=== PATIENT | male | born 1950 | race Caucasian/White ===

== ENCOUNTER 2017-03-16 21:37 | Emergency (ER) | payer MEDICARE, MEDICAID ==
[~2017-03-16] VITALS: Ht 172.7 cm; Wt 96.0 kg
[~2017-03-16 21:37] MED LIST: HYDR25TA PO; LEVE250T55 PO
[2017-03-16 22:02] LABS: GLUCOSE,POINT OF CARE 108 MG/DL (70-110)
[2017-03-17] MEDS ORDERED: KETOROLAC TROMETHAMINE 30 MG/ML VIAL IM ONE (00:15)
[2017-03-17 00:50] VITALS: BP 119/69
== END 2017-03-17 00:57 | disposition home or self-care (01) ==
LOC: EMS 21:39
DX: S09.90XA Unspecified injury of head, initial encounter (principal); E11.9 Type 2 diabetes mellitus without complications; I10 Essential (primary) hypertension; W19.XXXA Unspecified fall, initial encounter; Y93.89 Activity, other specified; Y92.89 Other specified places as the place of occurrence of the external cause; Y99.8 Other external cause status
CPT/HCPCS: 70450; 72125; 82962; 96372; 99284; J1885

== ENCOUNTER 2017-06-15 23:32 | Emergency (ER) | payer MEDICARE, MEDICAID ==
[~2017-06-15] VITALS: Ht 170.2 cm; Wt 81.5 kg
[2017-06-16] MEDS ORDERED: KETOROLAC TROMETHAMINE 30 MG/ML VIAL IM ONE (01:45)
[2017-06-16 03:07] VITALS: BP 113/72
[2017-10-09] MEDS ORDERED: DOCU250C91 PO (16:45)
[2017-10-09] MEDS ORDERED: LEVE500T53 PO (16:45)
[2017-10-09] MEDS ORDERED: OXYC10IR PO (16:45)
[2017-10-09] MEDS ORDERED: IBUP100O27 PO (16:45)
[2017-10-09] MEDS ORDERED: LIDO700A15 TD (16:45)
[2017-10-09] MEDS ORDERED: SENN8.6T90 PO (16:45)
[2017-10-09] MEDS ORDERED: GABA-529 PO (16:45)
[2017-10-09] MEDS ORDERED: TAMS0.4C32 PO (16:45)
[2017-10-10] MEDS ORDERED: GABA-531 PO (15:02)
[2017-10-10] MEDS ORDERED: IBUP-2070 PO (15:02)
[2017-10-11] MEDS ORDERED: DUTA.5 PO (18:16)
[2017-10-11] MEDS ORDERED: MVITFE PO (18:19)
[2017-10-11] MEDS ORDERED: PANT40TA25 PO (18:20)
[2017-10-11] MEDS ORDERED: CYCL10 PO (18:23)
[2017-10-11] MEDS ORDERED: LACT30L PO (18:25)
== END 2017-06-16 03:33 | disposition home or self-care (01) ==
LOC: EMS 23:33
DX: M54.5 Low back pain (principal); M62.830 Muscle spasm of back; G89.29 Other chronic pain; E11.9 Type 2 diabetes mellitus without complications; I10 Essential (primary) hypertension; Z86.73 Personal history of transient ischemic attack (TIA), and cerebral infarction without residual deficits
CPT/HCPCS: 82962; 96372; 99283; J1885

== ENCOUNTER 2017-06-16 14:46 | Emergency (ER) | payer MEDICARE, MEDICAID ==
[~2017-06-16] VITALS: Ht 172.7 cm; Wt 95.5 kg
[2017-06-16 15:12] LABS: GLUCOSE,POINT OF CARE 112 MG/DL (70-110)
[2017-06-16] MEDS ORDERED: KETOROLAC TROMETHAMINE 60 MG/2 ML VIAL IM ONE (16:30)
[2017-06-16 16:56] LABS: BASOPHILS % (AUTO) 0.3 % (0.0-2.0); EOSINOPHILS % (AUTO) 0.9 % (1.0-6.0); HEMATOCRIT 38.1 % (41-53); HEMOGLOBIN 13.1 g/dL (13.5-17.5); LYMPHOCYTES # (AUTO) 1.6 K/uL (1.0-4.8); MEAN CORPUSCULAR HEMOGLOBIN 31.7 pg (26.0-34.0); MEAN CORPUSCULAR HGB CONC 34.3 G/dL (31.0-37.0); MEAN CORPUSCULAR VOLUME 92 fL (80-100); MONOCYTES # (AUTO) 0.4 K/uL (0.1-1.0); NEUTROPHILS # (AUTO) 4.8 K/uL (1.8-7.7); NEUTROPHILS % (AUTO) 69.8 % (40.0-70.0); PLATELET COUNT (AUTO) 132 K/uL (150-450); RED BLOOD CELL COUNT(AUTO) 4.13 MIL/uL (4.50-5.90); RED CELL DISTRIBUTION WIDTH 15.1 % (11.5-14.5); WHITE BLOOD COUNT (AUTO) 6.9 K/uL (4.5-11.0)
[2017-06-16 17:08] LABS: ANION GAP 9 mmol/L (8-16); CALCIUM, TOTAL 8.1 mg/dL (8.8-10.5); CARBON DIOXIDE 26 mmol/L (22-29); CHLORIDE 99 mmol/L (98-107); CREATININE 0.86 mg/dL (0.60-1.30); GLOMERULAR FILTR. RATE CALC > 60 mL/min (>60); POTASSIUM 4.1 mmol/L (3.5-5.1); SODIUM SERUM 134 mmol/L (136-145); UREA NITROGEN, BLOOD 5 mg/dL (7-18)
[2017-06-16 17:14] LABS: ALANINE AMINOTRANSFERASE 31 U/L (12-78); ALBUMIN 3.1 g/dL (3.4-5.0); ASPARTATE AMINOTRANSFERASE 33 U/L (15-37); TOTAL PROTEIN, SERUM 7.3 g/dL (6.4-8.2)
[2017-06-16 17:50] VITALS: BP 133/86
[2017-10-09] MEDS ORDERED: GABA-529 PO (16:45)
[2017-10-09] MEDS ORDERED: SENN8.6T90 PO (16:45)
[2017-10-09] MEDS ORDERED: LEVE500T53 PO (16:45)
[2017-10-09] MEDS ORDERED: DOCU250C91 PO (16:45)
[2017-10-09] MEDS ORDERED: IBUP100O27 PO (16:45)
[2017-10-09] MEDS ORDERED: LIDO700A15 TD (16:45)
[2017-10-09] MEDS ORDERED: OXYC10IR PO (16:45)
[2017-10-09] MEDS ORDERED: TAMS0.4C32 PO (16:45)
[2017-10-10] MEDS ORDERED: GABA-531 PO (15:02)
[2017-10-10] MEDS ORDERED: IBUP-2070 PO (15:02)
[2017-10-11] MEDS ORDERED: DUTA.5 PO (18:16)
[2017-10-11] MEDS ORDERED: MVITFE PO (18:19)
[2017-10-11] MEDS ORDERED: PANT40TA25 PO (18:20)
[2017-10-11] MEDS ORDERED: CYCL10 PO (18:23)
[2017-10-11] MEDS ORDERED: LACT30L PO (18:25)
== END 2017-06-16 18:20 | disposition home or self-care (01) ==
LOC: EMS 14:48
DX: M54.5 Low back pain (principal); G89.29 Other chronic pain; F10.10 Alcohol abuse, uncomplicated; E11.9 Type 2 diabetes mellitus without complications; I10 Essential (primary) hypertension; Z86.73 Personal history of transient ischemic attack (TIA), and cerebral infarction without residual deficits
CPT/HCPCS: 36415; 72100; 80053; 80307; 82962; 85025; 96372; 99285; G0480; J1885

== ENCOUNTER 2017-08-27 15:01 | Inpatient (IN) | payer MEDICARE, MEDICAID ==
[~2017-08-27] VITALS: Ht 172.7 cm; Wt 88.5 kg
[2017-08-27 15:22] LABS: GLUCOSE,POINT OF CARE 94 MG/DL (70-110)
[2017-08-27] MEDS ORDERED: OXYC10 PO (15:42)
[2017-08-27] MEDS: IBUPROFEN 600 MG TABLET PO ONE ×3 (15:59→16:58)
[2017-08-27 16:16] LABS: EOSINOPHILS % (AUTO) 1.1 % (1.0-6.0); HEMATOCRIT 31.5 % (41-53); LYMPHOCYTES % (AUTO) 36.5 % (22.0-44.0); MEAN CORPUSCULAR HEMOGLOBIN 22.6 pg (26.0-34.0); MEAN CORPUSCULAR HGB CONC 31.7 G/dL (31.0-37.0); MEAN CORPUSCULAR VOLUME 71 fL (80-100); MONOCYTES # (AUTO) 0.4 K/uL (0.1-1.0); MONOCYTES % (AUTO) 13.9 % (2.0-9.0); NEUTROPHILS # (AUTO) 1.4 K/uL (1.8-7.7); NEUTROPHILS % (AUTO) 48.5 % (40.0-70.0); PLATELET COUNT (AUTO) 172 K/uL (150-450); RED BLOOD CELL COUNT(AUTO) 4.42 MIL/uL (4.50-5.90); RED CELL DISTRIBUTION WIDTH 24.4 % (11.5-14.5); WHITE BLOOD COUNT (AUTO) 2.8 K/uL (4.5-11.0)
[2017-08-27 16:27] LABS: ANION GAP 9 mmol/L (8-16); CALCIUM, TOTAL 8.4 mg/dL (8.8-10.5); CARBON DIOXIDE 28 mmol/L (22-29); CHLORIDE 108 mmol/L (98-107); CREATININE 0.73 mg/dL (0.60-1.30); GLOMERULAR FILTR. RATE CALC > 60 mL/min (>60); SODIUM SERUM 145 mmol/L (136-145); UREA NITROGEN, BLOOD 7 mg/dL (7-18)
[2017-08-27 16:33] LABS: ALANINE AMINOTRANSFERASE 24 U/L (12-78); ALBUMIN 3.7 g/dL (3.4-5.0); ASPARTATE AMINOTRANSFERASE 27 U/L (15-37); BILIRUBIN,TOTAL 0.8 mg/dL (0.1-1.0); TOTAL PROTEIN, SERUM 8.1 g/dL (6.4-8.2)
[2017-08-27 17:27] LABS: RBC MORPHOLOGY COMMENT ABNORMAL RBC MORPH
[2017-08-27] MEDS ORDERED: LORazepam 2 MG/ML VIAL IM ONE (19:15)
[2017-08-27] MEDS ORDERED: HALOPERIDOL LACTATE 5 MG/ML VIAL IM ONE (19:15)
[2017-08-27] MEDS ORDERED: DiphenhydrAMINE HCL 50 MG/ML VIAL IM ONE (19:15)
[2017-08-27] MEDS ORDERED: HALOPERIDOL 5 MG TABLET PO PRN (22:15)
[2017-08-28] VITALS (9 sets, daily range): BP systolic 107–143; BP diastolic 60–81
[2017-08-28] MEDS ORDERED: PNEUMOCOCCAL VACCINE POLYVALENT 0.5 ML VIAL [PPSV23] IM ONE (05:00)
[2017-08-28] MEDS ORDERED: INFLUENZA VIRUS VACCINE QVS 2017-18 (3YR+)/PF 60 MCG/0.5 ML SYRINGE IM ONE (06:45)
[2017-08-28] MEDS: IBUPROFEN 400 MG TABLET PO PRN ×2 (08:42→16:39)
[2017-08-28] MEDS: HYDROCHLOROTHIAZIDE 25 MG TABLET PO SCH (08:42)
[2017-08-28 09:24] LABS: CHOL/HDL RATIO 2.1 (4.2-7.3)
[2017-08-28] MEDS: ACETAMINOPHEN 325 MG TABLET PO PRN (12:07)
[2017-08-28] MEDS: LevETIRAcetam 250 MG TABLET PO SCH (15:38)
[2017-08-28] MEDS: OLANZapine 10 MG TABLET PO SCH (20:36)
[2017-08-28] MEDS: ZOLPIDEM TARTRATE 10 MG TABLET PO PRN (21:10)
[2017-08-29] VITALS (11 sets, daily range): BP systolic 122–149; BP diastolic 79–89
[2017-08-29] MEDS: IBUPROFEN 400 MG TABLET PO PRN ×2 (00:06→11:39)
[2017-08-29] MEDS ORDERED: ZOLP10TA2 PO (02:00)
[2017-08-29] MEDS ORDERED: LACTULOSE 20 GM/30 ML SOLUTION UDCUP PO SCH (09:00)
[2017-08-29] MEDS: HYDROCHLOROTHIAZIDE 25 MG TABLET PO SCH (09:13)
[2017-08-29] MEDS: LevETIRAcetam 250 MG TABLET PO SCH (09:13)
[2017-08-29] MEDS: LACTULOSE 20 GM/30 ML SOLUTION UDCUP PO SCH ×2 (13:03→16:16)
[2017-08-29] MEDS: OLANZapine 10 MG TABLET PO SCH (20:10)
[2017-08-29] MEDS: ZOLPIDEM TARTRATE 10 MG TABLET PO PRN (21:10)
[2017-08-30] VITALS (7 sets, daily range): BP systolic 132–138; BP diastolic 80–89
[2017-08-30] MEDS: IBUPROFEN 400 MG TABLET PO PRN ×3 (00:02→18:42)
[2017-08-30] MEDS: LACTULOSE 20 GM/30 ML SOLUTION UDCUP PO SCH ×3 (10:41→16:39)
[2017-08-30] MEDS: LevETIRAcetam 250 MG TABLET PO SCH (10:42)
[2017-08-30] MEDS: HYDROCHLOROTHIAZIDE 25 MG TABLET PO SCH (10:42)
[2017-08-30] MEDS: OLANZapine 10 MG TABLET PO SCH (20:45)
[2017-08-30] MEDS: ZOLPIDEM TARTRATE 10 MG TABLET PO PRN (21:57)
[2017-08-31 01:00] VITALS: BP 149/87
[2017-08-31 01:01] VITALS: BP 149/87
[2017-08-31] MEDS: IBUPROFEN 400 MG TABLET PO PRN ×2 (01:03→16:17)
[2017-08-31 08:30] LABS: EOSINOPHILS % (AUTO) 1.4 % (1.0-6.0); HEMATOCRIT 27.2 % (41-53); HEMOGLOBIN 8.5 g/dL (13.5-17.5); LYMPHOCYTES # (AUTO) 0.8 K/uL (1.0-4.8); LYMPHOCYTES % (AUTO) 19.4 % (22.0-44.0); MEAN CORPUSCULAR HEMOGLOBIN 22.5 pg (26.0-34.0); MEAN CORPUSCULAR HGB CONC 31.4 G/dL (31.0-37.0); MEAN CORPUSCULAR VOLUME 72 fL (80-100); MONOCYTES # (AUTO) 0.5 K/uL (0.1-1.0); MONOCYTES % (AUTO) 12.5 % (2.0-9.0); NEUTROPHILS # (AUTO) 2.6 K/uL (1.8-7.7); NEUTROPHILS % (AUTO) 66.7 % (40.0-70.0); PLATELET COUNT (AUTO) 128 K/uL (150-450); RED CELL DISTRIBUTION WIDTH 24.9 % (11.5-14.5)
[2017-08-31 08:42] VITALS: BP 139/80
[2017-08-31 08:45] VITALS: BP 139/80
[2017-08-31] MEDS: HYDROCHLOROTHIAZIDE 25 MG TABLET PO SCH (08:57)
[2017-08-31] MEDS: LevETIRAcetam 250 MG TABLET PO SCH (08:57)
[2017-08-31] MEDS: LACTULOSE 20 GM/30 ML SOLUTION UDCUP PO SCH ×3 (08:59→16:14)
[2017-08-31 09:42] LABS: RBC MORPHOLOGY COMMENT ABNORMAL RBC MORPH
[2017-08-31 16:08] VITALS: BP 133/81
[2017-08-31 16:17] VITALS: BP 131/79
[2017-08-31] MEDS: ZOLPIDEM TARTRATE 10 MG TABLET PO PRN (20:28)
[2017-08-31] MEDS: OLANZapine 10 MG TABLET PO SCH (20:49)
[2017-09-01] VITALS (12 sets, daily range): BP systolic 123–164; BP diastolic 82–98
[2017-09-01] MEDS: LORazepam 2 MG TABLET PO PRN (00:03)
[2017-09-01] MEDS: IBUPROFEN 400 MG TABLET PO PRN ×3 (03:34→22:55)
[2017-09-01] MEDS: HYDROCHLOROTHIAZIDE 25 MG TABLET PO SCH (08:13)
[2017-09-01] MEDS: LACTULOSE 20 GM/30 ML SOLUTION UDCUP PO SCH ×3 (08:13→16:37)
[2017-09-01] MEDS: LevETIRAcetam 250 MG TABLET PO SCH (08:13)
[2017-09-01] MEDS: OLANZapine 10 MG TABLET PO SCH (20:40)
[2017-09-02 06:54] VITALS: BP 138/85
[2017-09-02 08:13] VITALS: BP_SYST 12; BP_SYST 123; BP_DIAS 71
[2017-09-02 08:51] LABS: BASOPHILS % (AUTO) 0.2 % (0.0-2.0); EOSINOPHILS % (AUTO) 3.1 % (1.0-6.0); HEMATOCRIT 26.1 % (41-53); HEMOGLOBIN 8.2 g/dL (13.5-17.5); LYMPHOCYTES # (AUTO) 0.6 K/uL (1.0-4.8); LYMPHOCYTES % (AUTO) 21.9 % (22.0-44.0); MEAN CORPUSCULAR HEMOGLOBIN 22.4 pg (26.0-34.0); MEAN CORPUSCULAR HGB CONC 31.4 G/dL (31.0-37.0); MEAN CORPUSCULAR VOLUME 71 fL (80-100); MONOCYTES # (AUTO) 0.4 K/uL (0.1-1.0); MONOCYTES % (AUTO) 14.2 % (2.0-9.0); NEUTROPHILS # (AUTO) 1.6 K/uL (1.8-7.7); NEUTROPHILS % (AUTO) 60.6 % (40.0-70.0); PLATELET COUNT (AUTO) 136 K/uL (150-450); RED BLOOD CELL COUNT(AUTO) 3.66 MIL/uL (4.50-5.90); RED CELL DISTRIBUTION WIDTH 25.2 % (11.5-14.5)
[2017-09-02 09:04] LABS: ANION GAP 9 mmol/L (8-16); CARBON DIOXIDE 26 mmol/L (22-29); CHLORIDE 106 mmol/L (98-107); CREATININE 0.83 mg/dL (0.60-1.30); GLOMERULAR FILTR. RATE CALC > 60 mL/min (>60); POTASSIUM 3.5 mmol/L (3.5-5.1); SODIUM SERUM 141 mmol/L (136-145); UREA NITROGEN, BLOOD 15 mg/dL (7-18)
[2017-09-02 09:25] LABS: WHITE BLOOD COUNT (AUTO) 2.9 K/uL (4.5-11.0)
[2017-09-02] MEDS: LevETIRAcetam 250 MG TABLET PO SCH (09:46)
[2017-09-02] MEDS: HYDROCHLOROTHIAZIDE 25 MG TABLET PO SCH (09:46)
[2017-09-02] MEDS: LACTULOSE 20 GM/30 ML SOLUTION UDCUP PO SCH ×3 (09:47→16:37)
[2017-09-02 10:43] VITALS: BP 128/72
[2017-09-02] MEDS: IBUPROFEN 400 MG TABLET PO PRN ×2 (10:43→21:48)
[2017-09-02 16:12] VITALS: BP 138/78
[2017-09-02] MEDS: RIFAXIMIN 550 MG TABLET PO SCH (16:36)
[2017-09-02] MEDS ORDERED: RIFAXIMIN 200 MG TABLET PO SCH (17:00)
[2017-09-02] MEDS: OLANZapine 10 MG TABLET PO SCH (20:40)
[2017-09-02 21:48] VITALS: BP 111/82
[2017-09-03 06:30] VITALS: BP 133/78
[2017-09-03] MEDS: FERROUS SULFATE 325 MG EC TABLET PO SCH ×4 (06:41→20:07)
[2017-09-03 08:00] VITALS: BP 138/89
[2017-09-03] MEDS: HYDROCHLOROTHIAZIDE 25 MG TABLET PO SCH (08:23)
[2017-09-03] MEDS: RIFAXIMIN 550 MG TABLET PO SCH ×3 (08:24→16:09)
[2017-09-03] MEDS: LevETIRAcetam 250 MG TABLET PO SCH (08:24)
[2017-09-03] MEDS: LACTULOSE 20 GM/30 ML SOLUTION UDCUP PO SCH ×3 (08:24→16:08)
[2017-09-03 08:38] VITALS: BP 138/89
[2017-09-03] MEDS: IBUPROFEN 400 MG TABLET PO PRN (09:40)
[2017-09-03 16:00] VITALS: BP 137/71
[2017-09-03 16:08] VITALS: BP 132/79
[2017-09-03] MEDS: LORazepam 2 MG TABLET PO PRN (19:05)
[2017-09-03] MEDS: MAGNESIUM HYDROXIDE SUSPENSION 30 ML UDCUP PO PRN (19:05)
[2017-09-03] MEDS: OLANZapine 10 MG TABLET PO SCH (20:07)
[2017-09-04 04:25] VITALS: BP 138/90
[2017-09-04] MEDS: IBUPROFEN 400 MG TABLET PO PRN ×2 (04:30→19:56)
[2017-09-04] MEDS: ACETAMINOPHEN 325 MG TABLET PO PRN (06:34)
[2017-09-04] MEDS: FERROUS SULFATE 325 MG EC TABLET PO SCH ×4 (06:58→20:09)
[2017-09-04 08:46] VITALS: BP 107/60
[2017-09-04] MEDS: HYDROCHLOROTHIAZIDE 25 MG TABLET PO SCH (08:55)
[2017-09-04] MEDS: LevETIRAcetam 250 MG TABLET PO SCH (08:56)
[2017-09-04] MEDS: RIFAXIMIN 550 MG TABLET PO SCH ×3 (08:56→16:58)
[2017-09-04] MEDS: LACTULOSE 20 GM/30 ML SOLUTION UDCUP PO SCH ×3 (08:56→16:58)
[2017-09-04 08:59] VITALS: BP 145/81
[2017-09-04] MEDS: MAGNESIUM HYDROXIDE SUSPENSION 30 ML UDCUP PO PRN (10:00)
[2017-09-04 16:11] VITALS: BP 127/87
[2017-09-04 19:56] VITALS: BP 124/84
[2017-09-04] MEDS: OLANZapine 10 MG TABLET PO SCH (20:09)
[2017-09-04 23:09] VITALS: BP 118/80
[2017-09-04] MEDS: TraMADol HCL 50 MG TABLET PO PRN (23:09)
[2017-09-05 01:07] VITALS: BP 140/83
[2017-09-05] MEDS: LORazepam 2 MG TABLET PO PRN (01:10)
[2017-09-05] MEDS: MAGNESIUM HYDROXIDE SUSPENSION 30 ML UDCUP PO PRN (02:38)
[2017-09-05] MEDS: FERROUS SULFATE 325 MG EC TABLET PO SCH ×4 (06:55→20:38)
[2017-09-05 08:50] VITALS: BP 153/83
[2017-09-05] MEDS: RIFAXIMIN 550 MG TABLET PO SCH ×3 (08:55→16:37)
[2017-09-05] MEDS: HYDROCHLOROTHIAZIDE 25 MG TABLET PO SCH (08:56)
[2017-09-05] MEDS: LACTULOSE 20 GM/30 ML SOLUTION UDCUP PO SCH ×3 (08:56→16:37)
[2017-09-05] MEDS: LevETIRAcetam 250 MG TABLET PO SCH (08:56)
[2017-09-05 16:21] VITALS: BP 136/75
[2017-09-05 19:15] VITALS: BP 139/83
[2017-09-05] MEDS: TraMADol HCL 50 MG TABLET PO PRN (19:15)
[2017-09-05] MEDS: OLANZapine 10 MG TABLET PO SCH (20:39)
[2017-09-06 03:38] VITALS: BP 140/100
[2017-09-06] MEDS: FERROUS SULFATE 325 MG EC TABLET PO SCH ×2 (06:55→11:46)
[2017-09-06 08:00] VITALS: BP 133/96
[2017-09-06] MEDS: LACTULOSE 20 GM/30 ML SOLUTION UDCUP PO SCH ×2 (08:39→12:23)
[2017-09-06] MEDS: LevETIRAcetam 250 MG TABLET PO SCH (08:39)
[2017-09-06] MEDS: RIFAXIMIN 550 MG TABLET PO SCH ×2 (08:39→12:24)
[2017-09-06] MEDS: HYDROCHLOROTHIAZIDE 25 MG TABLET PO SCH (08:39)
[2017-09-06 09:30] VITALS: BP 130/88
[2017-09-06] MEDS ORDERED: OLAN10TA3 PO (10:22)
[2017-09-06] MEDS ORDERED: FERR325T22 PO (10:38)
[2017-09-06] MEDS ORDERED: LACT30L PO (10:39)
[2017-09-06] MEDS ORDERED: RIFAX550 PO (10:40)
[2017-10-09] MEDS ORDERED: LIDO700A15 TD (16:45)
[2017-10-09] MEDS ORDERED: LEVE500T53 PO (16:45)
[2017-10-09] MEDS ORDERED: TAMS0.4C32 PO (16:45)
[2017-10-09] MEDS ORDERED: OXYC10IR PO (16:45)
[2017-10-09] MEDS ORDERED: SENN8.6T90 PO (16:45)
[2017-10-09] MEDS ORDERED: GABA-529 PO (16:45)
[2017-10-09] MEDS ORDERED: IBUP100O27 PO (16:45)
[2017-10-09] MEDS ORDERED: DOCU250C91 PO (16:45)
[2017-10-10] MEDS ORDERED: IBUP-2070 PO (15:02)
[2017-10-10] MEDS ORDERED: GABA-531 PO (15:02)
[2017-10-11] MEDS ORDERED: DUTA.5 PO (18:16)
[2017-10-11] MEDS ORDERED: MVITFE PO (18:19)
[2017-10-11] MEDS ORDERED: PANT40TA25 PO (18:20)
[2017-10-11] MEDS ORDERED: CYCL10 PO (18:23)
[2017-10-11] MEDS ORDERED: LACT30L PO (18:25)
== END 2017-09-06 13:25 | disposition home or self-care (01) | DRG 885 ==
LOC: EMS 15:02 → B2X 23:15
PROVIDERS: ADMIT Psychiatry & Neurology Child & Adolescent Psychiatry; ATTEND Psychiatry & Neurology Child & Adolescent Psychiatry
DX: F20.0 Paranoid schizophrenia (principal); D61.818 Other pancytopenia; F33.2 Major depressive disorder, recurrent severe without psychotic features; R45.851 Suicidal ideations; Z78.1 Physical restraint status; E11.9 Type 2 diabetes mellitus without complications; G40.909 Epilepsy, unspecified, not intractable, without status epilepticus; K72.90 Hepatic failure, unspecified without coma; F10.20 Alcohol dependence, uncomplicated; I10 Essential (primary) hypertension; M54.5 Low back pain; G89.29 Other chronic pain; Y90.8 Blood alcohol level of 240 mg/100 ml or more; Z79.899 Other long term (current) drug therapy; Z86.73 Personal history of transient ischemic attack (TIA), and cerebral infarction without residual deficits; Z91.81 History of falling; Z28.21 Immunization not carried out because of patient refusal
CPT/HCPCS: 82728; 82962; 83540; 83550; 93005; 96372; 99291; G0480; G0482; J1200; J1630; J2060

== ENCOUNTER 2017-08-29 01:36 | Emergency (ER) | payer MEDICARE, MEDICAID ==
[~2017-08-29] VITALS: Ht 165.1 cm; Wt 72.7 kg
[~2017-08-29 01:36] MED LIST changes: +OXYC10 PO
[2017-08-29 01:57] LABS: GLUCOSE,POINT OF CARE 89 MG/DL (70-110)
[2017-08-29] MEDS ORDERED: ZOLP10TA2 PO (02:00)
[2017-08-29 04:54] VITALS: BP 131/80
[2017-10-09] MEDS ORDERED: IBUP100O27 PO (16:45)
[2017-10-09] MEDS ORDERED: GABA-529 PO (16:45)
[2017-10-09] MEDS ORDERED: DOCU250C91 PO (16:45)
[2017-10-09] MEDS ORDERED: LIDO700A15 TD (16:45)
[2017-10-09] MEDS ORDERED: OXYC10IR PO (16:45)
[2017-10-09] MEDS ORDERED: LEVE500T53 PO (16:45)
[2017-10-09] MEDS ORDERED: SENN8.6T90 PO (16:45)
[2017-10-09] MEDS ORDERED: TAMS0.4C32 PO (16:45)
[2017-10-10] MEDS ORDERED: IBUP-2070 PO (15:02)
[2017-10-10] MEDS ORDERED: GABA-531 PO (15:02)
[2017-10-11] MEDS ORDERED: DUTA.5 PO (18:16)
[2017-10-11] MEDS ORDERED: MVITFE PO (18:19)
[2017-10-11] MEDS ORDERED: PANT40TA25 PO (18:20)
[2017-10-11] MEDS ORDERED: CYCL10 PO (18:23)
[2017-10-11] MEDS ORDERED: LACT30L PO (18:25)
== END 2017-08-29 05:22 | disposition home or self-care (01) ==
LOC: EMS 01:38
DX: S30.0XXA Contusion of lower back and pelvis, initial encounter (principal); G89.29 Other chronic pain; M79.601 Pain in right arm; E11.9 Type 2 diabetes mellitus without complications; I11.9 Hypertensive heart disease without heart failure; Z86.73 Personal history of transient ischemic attack (TIA), and cerebral infarction without residual deficits; W18.30XA Fall on same level, unspecified, initial encounter; Y93.89 Activity, other specified; Y92.89 Other specified places as the place of occurrence of the external cause; Y99.8 Other external cause status
CPT/HCPCS: 70450; 72125; 72131; 82962; 99284

== ENCOUNTER 2017-09-01 04:12 | Emergency (ER) | payer MEDICARE, MEDICAID ==
[~2017-09-01] VITALS: Ht 172.7 cm; Wt 77.0 kg
[~2017-09-01 04:12] MED LIST changes: +ZOLP10TA2 PO
[2017-09-01 05:34] VITALS: BP 143/74
[2017-09-01 06:52] LABS: GLUCOSE,POINT OF CARE 98 MG/DL (70-110)
[2017-10-09] MEDS ORDERED: TAMS0.4C32 PO (16:45)
[2017-10-09] MEDS ORDERED: DOCU250C91 PO (16:45)
[2017-10-09] MEDS ORDERED: SENN8.6T90 PO (16:45)
[2017-10-09] MEDS ORDERED: LEVE500T53 PO (16:45)
[2017-10-09] MEDS ORDERED: IBUP100O27 PO (16:45)
[2017-10-09] MEDS ORDERED: GABA-529 PO (16:45)
[2017-10-09] MEDS ORDERED: OXYC10IR PO (16:45)
[2017-10-09] MEDS ORDERED: LIDO700A15 TD (16:45)
[2017-10-10] MEDS ORDERED: GABA-531 PO (15:02)
[2017-10-10] MEDS ORDERED: IBUP-2070 PO (15:02)
[2017-10-11] MEDS ORDERED: DUTA.5 PO (18:16)
[2017-10-11] MEDS ORDERED: MVITFE PO (18:19)
[2017-10-11] MEDS ORDERED: PANT40TA25 PO (18:20)
[2017-10-11] MEDS ORDERED: CYCL10 PO (18:23)
[2017-10-11] MEDS ORDERED: LACT30L PO (18:25)
== END 2017-09-01 06:45 | disposition home or self-care (01) ==
LOC: EMS 04:14
DX: M54.9 Dorsalgia, unspecified (principal); M54.2 Cervicalgia; E11.9 Type 2 diabetes mellitus without complications; I11.9 Hypertensive heart disease without heart failure; W19.XXXA Unspecified fall, initial encounter; Y93.89 Activity, other specified; Y92.89 Other specified places as the place of occurrence of the external cause; Y99.8 Other external cause status
CPT/HCPCS: 70450; 72125; 82962; 99284

== ENCOUNTER 2017-12-09 00:09 | Emergency (ER) | payer MEDICARE, MEDICAID ==
[~2017-12-09] VITALS: Ht 172.7 cm; Wt 95.5 kg
[~2017-12-09 00:09] MED LIST changes: +CYCL10 PO; +DOCU250C91 PO; +DUTA.5 PO; +FERR325T22 PO; +GABA-531 PO; +IBUP-2070 PO; +LACT30L PO; -LEVE250T55 PO; +LEVE500T53 PO; +LIDO700A15 TD; +MVITFE PO; +OLAN10TA3 PO; -OXYC10 PO; +OXYC10IR PO; +PANT40TA25 PO; +RIFAX550 PO; +SENN8.6T90 PO; +TAMS0.4C32 PO; -ZOLP10TA2 PO
[2017-12-09 00:32] LABS: GLUCOSE,POINT OF CARE 95 MG/DL (70-110)
[2017-12-09] MEDS ORDERED: SODIUM CHLORIDE 0.9% 1,000 ML IV ONE (00:45)
[2017-12-09 03:55] VITALS: BP 95/64
[2017-12-09 04:42] LABS: GLUCOSE,POINT OF CARE 85 MG/DL (70-110)
== END 2017-12-09 05:49 | disposition home or self-care (01) ==
LOC: EMS 00:10
DX: F10.129 Alcohol abuse with intoxication, unspecified (principal); E11.9 Type 2 diabetes mellitus without complications; I10 Essential (primary) hypertension; Z86.73 Personal history of transient ischemic attack (TIA), and cerebral infarction without residual deficits
CPT/HCPCS: 82962; 96360; 99284; J7030

== ENCOUNTER 2018-01-09 19:01 | Emergency (ER) | payer MEDICARE, MEDICAID | END 2018-01-09 19:36 | disposition left against medical advice (07) | LOC: EMS 19:02 | DX: R53.1 Weakness (principal); Z53.21 Procedure and treatment not carried out due to patient leaving prior to being seen by health care provider ==

== ENCOUNTER 2018-01-14 20:27 | Emergency (ER) | payer MEDICARE, MEDICAID ==
[~2018-01-14] VITALS: Ht 172.7 cm; Wt 91.8 kg
[2018-01-14] MEDS ORDERED: LEVE250T55 PO (20:51)
[2018-01-14] MEDS ORDERED: UNKNOWN MEDS PO (20:51)
[2018-01-14] MEDS ORDERED: MAGNESIUM SULFATE 2 GM, MVI, ADULT NO.1 WITH VIT K 10 ML, THIAMINE HCL 100 MG, FOLIC AC... IV ONE ×5 (21:15)
[2018-01-14 21:49] LABS: BASOPHILS % (AUTO) 0.5 % (0.0-2.0); EOSINOPHILS % (AUTO) 2.2 % (1.0-6.0); HEMATOCRIT 38.3 % (41-53); HEMOGLOBIN 12.5 g/dL (13.5-17.5); LYMPHOCYTES # (AUTO) 1.2 K/uL (1.0-4.8); LYMPHOCYTES % (AUTO) 23.3 % (22.0-44.0); MEAN CORPUSCULAR HEMOGLOBIN 28.9 pg (26.0-34.0); MEAN CORPUSCULAR HGB CONC 32.7 G/dL (31.0-37.0); MEAN CORPUSCULAR VOLUME 89 fL (80-100); MONOCYTES # (AUTO) 0.7 K/uL (0.1-1.0); MONOCYTES % (AUTO) 12.3 % (2.0-9.0); NEUTROPHILS # (AUTO) 3.3 K/uL (1.8-7.7); NEUTROPHILS % (AUTO) 61.7 % (40.0-70.0); RED BLOOD CELL COUNT(AUTO) 4.33 MIL/uL (4.50-5.90); RED CELL DISTRIBUTION WIDTH 20.6 % (11.5-14.5)
[2018-01-14 21:53] LABS: ANION GAP 11 mmol/L (8-16); CALCIUM, TOTAL 8.9 mg/dL (8.8-10.5); CARBON DIOXIDE 23 mmol/L (22-29); CHLORIDE 92 mmol/L (98-107); CREATININE 1.15 mg/dL (0.60-1.30); GLOMERULAR FILTR. RATE CALC > 60 mL/min (>60); GLUCOSE,RANDOM 95 mg/dL (70-110); POTASSIUM 3.8 mmol/L (3.5-5.1); SODIUM SERUM 126 mmol/L (136-145); UREA NITROGEN, BLOOD 15 mg/dL (7-18)
[2018-01-14 21:56] LABS: ALANINE AMINOTRANSFERASE 48 U/L (12-78); ALBUMIN 3.5 g/dL (3.4-5.0); ALKALINE PHOSPHATASE 155 U/L (46-116); ASPARTATE AMINOTRANSFERASE 75 U/L (15-37); BILIRUBIN,TOTAL 2.4 mg/dL (0.1-1.0); TOTAL PROTEIN, SERUM 7.4 g/dL (6.4-8.2)
[2018-01-14 21:57] LABS: PLATELET COUNT (AUTO) 104 K/uL (150-450)
[2018-01-14 22:07] LABS: PLATELET MORPHOLOGY COMMENT LARGE PLTS PRESENT
[2018-01-14 23:11] LABS: LIPASE 378 U/L (73-393)
[2018-01-15 01:14] LABS: APPEARANCE,URINE CLEAR (CLEAR); BILIRUBIN,URINE NEGATIVE (NEGATIVE); GLUCOSE, URINE (UA) NEGATIVE (NEGATIVE); KETONES,URINE NEGATIVE (NEGATIVE); LEUKOCYTE ESTERASE ,URINE NEGATIVE (NEGATIVE); NITRATE,URINE NEGATIVE (NEGATIVE); OCCULT BLOOD,URINE NEGATIVE (NEGATIVE); PH,URINE 5.5 (5.0-8.0); PROTEIN,URINE NEGATIVE (NEGATIVE)
[2018-01-15 01:19] LABS: AMPHET/METH SCREEN,URINE NEGATIVE (NEGATIVE); BARBITURATE SCREEN, URINE NEGATIVE (NEGATIVE); BENZODIAZEPINES SCREEN,URINE NEGATIVE (NEGATIVE); CANNABINOID SCREEN,URINE NEGATIVE (NEGATIVE); COCAINE SCREEN,URINE NEGATIVE (NEGATIVE); METHADONE SCREEN, URINE NEGATIVE (NEGATIVE); OPIATE SCREEN,URINE NEGATIVE (NEGATIVE)
[2018-01-15 01:21] LABS: PHENCYCLIDINE SCREEN,URINE NEGATIVE (NEGATIVE)
[2018-01-15 01:37] LABS: BACTERIA,URINE None Seen /HPF (None Seen); RBC,URINE 0-2 /HPF (0-2); WBC,URINE 0-2 /HPF (0-5)
[2018-01-15 03:31] VITALS: BP 107/66
== END 2018-01-15 03:52 | disposition home or self-care (01) ==
LOC: EMS 20:28 → MERGE 20:28 → EDBD 20:28 → EMS 01-15 03:52
DX: F10.229 Alcohol dependence with intoxication, unspecified (principal); E87.1 Hypo-osmolality and hyponatremia; I95.9 Hypotension, unspecified; I10 Essential (primary) hypertension; E11.9 Type 2 diabetes mellitus without complications; Y90.8 Blood alcohol level of 240 mg/100 ml or more
CPT/HCPCS: 36415; 70450; 71045; 80053; 80307; 81001; 83690; 84484; 85025; 93005; 96365; 99285; G0480; J3411; J3475; J3490 ×2; J7030

== ENCOUNTER 2018-01-15 07:44 | Emergency (ER) | payer MEDICARE, MEDICAID ==
[~2018-01-15] VITALS: Ht 172.7 cm; Wt 95.5 kg
[~2018-01-15 07:44] MED LIST changes: +LEVE250T55 PO; +UNKNOWN MEDS PO
[2018-01-15 08:17] LABS: GLUCOSE,POINT OF CARE 102 MG/DL (70-110)
[2018-01-15 08:51] LABS: BASOPHILS % (AUTO) 0.5 % (0.0-2.0); EOSINOPHILS % (AUTO) 2.2 % (1.0-6.0); HEMATOCRIT 38.6 % (41-53); HEMOGLOBIN 12.8 g/dL (13.5-17.5); LYMPHOCYTES # (AUTO) 0.8 K/uL (1.0-4.8); LYMPHOCYTES % (AUTO) 20.8 % (22.0-44.0); MEAN CORPUSCULAR HEMOGLOBIN 29.3 pg (26.0-34.0); MEAN CORPUSCULAR HGB CONC 33.2 G/dL (31.0-37.0); MEAN CORPUSCULAR VOLUME 88 fL (80-100); MONOCYTES # (AUTO) 0.4 K/uL (0.1-1.0); MONOCYTES % (AUTO) 10.2 % (2.0-9.0); NEUTROPHILS # (AUTO) 2.5 K/uL (1.8-7.7); NEUTROPHILS % (AUTO) 66.3 % (40.0-70.0); PLATELET COUNT (AUTO) 117 K/uL (150-450); RED BLOOD CELL COUNT(AUTO) 4.37 MIL/uL (4.50-5.90); RED CELL DISTRIBUTION WIDTH 20.7 % (11.5-14.5)
[2018-01-15 09:01] LABS: ANION GAP 10 mmol/L (8-16); CALCIUM, TOTAL 8.4 mg/dL (8.8-10.5); CARBON DIOXIDE 24 mmol/L (22-29); CHLORIDE 100 mmol/L (98-107); CREATININE 0.87 mg/dL (0.60-1.30); GLOMERULAR FILTR. RATE CALC > 60 mL/min (>60); GLUCOSE,RANDOM 106 mg/dL (70-110); POTASSIUM 4.9 mmol/L (3.5-5.1); SODIUM SERUM 134 mmol/L (136-145); UREA NITROGEN, BLOOD 11 mg/dL (7-18)
[2018-01-15 09:03] LABS: INR 1.1 (0.9-1.1)
[2018-01-15 09:15] LABS: B-TYPE NATRIURETIC PEPTIDE 48 pg/mL (0-100)
[2018-01-15 09:26] LABS: ALANINE AMINOTRANSFERASE 62 U/L (12-78); ALBUMIN 3.8 g/dL (3.4-5.0); ALKALINE PHOSPHATASE 164 U/L (46-116); ASPARTATE AMINOTRANSFERASE 101 U/L (15-37); CKMB RELATIVE INDEX 1.4 % (0.0-4.0); CREATINE KINASE MB 7.1 ng/mL (0-5); CREATINE KINASE, TOTAL 492 U/L (39-308)
[2018-01-15 12:17] LABS: APPEARANCE,URINE CLEAR (CLEAR); BILIRUBIN,URINE NEGATIVE (NEGATIVE); GLUCOSE, URINE (UA) NEGATIVE (NEGATIVE); KETONES,URINE NEGATIVE (NEGATIVE); LEUKOCYTE ESTERASE ,URINE NEGATIVE (NEGATIVE); NITRATE,URINE NEGATIVE (NEGATIVE); OCCULT BLOOD,URINE NEGATIVE (NEGATIVE); PH,URINE 5.5 (5.0-8.0); PROTEIN,URINE NEGATIVE (NEGATIVE)
[2018-01-15 13:12] VITALS: BP 107/59
== END 2018-01-15 14:00 | disposition home or self-care (01) ==
LOC: EMS 07:48
DX: R07.89 Other chest pain (principal); E80.7 Disorder of bilirubin metabolism, unspecified; E11.9 Type 2 diabetes mellitus without complications; I10 Essential (primary) hypertension; I25.10 Atherosclerotic heart disease of native coronary artery without angina pectoris; G89.29 Other chronic pain; Z86.73 Personal history of transient ischemic attack (TIA), and cerebral infarction without residual deficits; Z79.899 Other long term (current) drug therapy
CPT/HCPCS: 82962; 93005; 99285

== ENCOUNTER 2018-04-03 20:26 | Emergency (ER) | payer MEDICARE, MEDICAID ==
[~2018-04-03] VITALS: Ht 172.7 cm; Wt 82.1 kg
[~2018-04-03 20:26] MED LIST changes: +AMLO-511 PO; +ASPI-556 PO; +BENZ-51 PO; +BIMA12.5OS OU; +BISA5TAB82 PO; +BUME1TAB17 PO; -CYCL10 PO; -DUTA.5 PO; +ESCI10TA PO; +FINA5TAB41 PO; +FOLI1 PO; +GABA-529 PO; -GABA-531 PO; +HYDR-309 PO; -IBUP-2070 PO; -LEVE250T55 PO; +LISI-662 PO; -OLAN10TA3 PO; -OXYC10IR PO; +OXYC5 PO; -UNKNOWN MEDS PO; +[UNRECOGNIZED DRUG - CODE] PO
[2018-04-03 21:20] LABS: BASOPHILS % (AUTO) 0.5 % (0.0-2.0); EOSINOPHILS % (AUTO) 2.5 % (1.0-6.0); HEMATOCRIT 44.1 % (41-53); HEMOGLOBIN 15.4 g/dL (13.5-17.5); LYMPHOCYTES # (AUTO) 1.4 K/uL (1.0-4.8); LYMPHOCYTES % (AUTO) 30.5 % (22.0-44.0); MEAN CORPUSCULAR HEMOGLOBIN 33.3 pg (26.0-34.0); MEAN CORPUSCULAR HGB CONC 34.9 G/dL (31.0-37.0); MEAN CORPUSCULAR VOLUME 95 fL (80-100); MONOCYTES # (AUTO) 0.3 K/uL (0.1-1.0); NEUTROPHILS # (AUTO) 2.7 K/uL (1.8-7.7); NEUTROPHILS % (AUTO) 60.5 % (40.0-70.0); RED BLOOD CELL COUNT(AUTO) 4.63 MIL/uL (4.50-5.90); RED CELL DISTRIBUTION WIDTH 15.7 % (11.5-14.5)
[2018-04-03 21:38] LABS: ANION GAP 9 mmol/L (8-16); CALCIUM, TOTAL 8.5 mg/dL (8.8-10.5); CARBON DIOXIDE 27 mmol/L (22-29); CHLORIDE 100 mmol/L (98-107); CREATININE 0.82 mg/dL (0.60-1.30); GLOMERULAR FILTR. RATE CALC > 60 mL/min (>60); GLUCOSE,RANDOM 75 mg/dL (70-110); POTASSIUM 3.6 mmol/L (3.5-5.1); SODIUM SERUM 136 mmol/L (136-145); UREA NITROGEN, BLOOD 6 mg/dL (7-18)
[2018-04-03 21:44] LABS: ALANINE AMINOTRANSFERASE 28 U/L (12-78); ALBUMIN 4.1 g/dL (3.4-5.0); ALKALINE PHOSPHATASE 138 U/L (46-116); ASPARTATE AMINOTRANSFERASE 36 U/L (15-37); BILIRUBIN,TOTAL 1.5 mg/dL (0.1-1.0); LIPASE 147 U/L (73-393); TOTAL PROTEIN, SERUM 8.4 g/dL (6.4-8.2)
[2018-04-03 21:45] LABS: AMMONIA 20 umol/L (11-32)
[2018-04-03 21:48] LABS: TROPONIN I < 0.02 ng/mL (0.00-0.05)
[2018-04-03 21:58] LABS: PLATELET COUNT (AUTO) 112 K/uL (150-450)
[2018-04-03 21:59] LABS: INR 1.1 (0.9-1.1); PROTHROMBIN TIME 11.3 SEC (9.4-11.6)
[2018-04-03 22:01] LABS: B-TYPE NATRIURETIC PEPTIDE 48 pg/mL (0-100)
[2018-04-03 22:12] LABS: LACTIC ACID 2.4 mmol/L (0.4-2.0)
[2018-04-03 22:36] LABS: APPEARANCE,URINE CLEAR (CLEAR); BILIRUBIN,URINE NEGATIVE (NEGATIVE); GLUCOSE, URINE (UA) NEGATIVE (NEGATIVE); KETONES,URINE NEGATIVE (NEGATIVE); LEUKOCYTE ESTERASE ,URINE NEGATIVE (NEGATIVE); NITRATE,URINE NEGATIVE (NEGATIVE); OCCULT BLOOD,URINE TRACE (NEGATIVE); PROTEIN,URINE NEGATIVE (NEGATIVE)
[2018-04-03 22:41] LABS: AMPHET/METH SCREEN,URINE NEGATIVE (NEGATIVE); BARBITURATE SCREEN, URINE NEGATIVE (NEGATIVE); BENZODIAZEPINES SCREEN,URINE NEGATIVE (NEGATIVE); CANNABINOID SCREEN,URINE NEGATIVE (NEGATIVE); COCAINE SCREEN,URINE NEGATIVE (NEGATIVE); METHADONE SCREEN, URINE NEGATIVE (NEGATIVE); OPIATE SCREEN,URINE NEGATIVE (NEGATIVE)
[2018-04-03 22:52] LABS: PHENCYCLIDINE SCREEN,URINE NEGATIVE (NEGATIVE)
[2018-04-03 22:59] LABS: BACTERIA,URINE None Seen /HPF (None Seen); WBC,URINE 0-2 /HPF (0-5)
[2018-04-04 09:04] VITALS: BP 120/78
== END 2018-04-04 09:24 | disposition home or self-care (01) ==
LOC: EMS 20:34
DX: R41.82 Altered mental status, unspecified (principal); F10.129 Alcohol abuse with intoxication, unspecified; K70.30 Alcoholic cirrhosis of liver without ascites; E11.9 Type 2 diabetes mellitus without complications; I10 Essential (primary) hypertension; K43.9 Ventral hernia without obstruction or gangrene; K72.90 Hepatic failure, unspecified without coma; Z86.73 Personal history of transient ischemic attack (TIA), and cerebral infarction without residual deficits; Z79.899 Other long term (current) drug therapy; Z79.82 Long term (current) use of aspirin; Y90.8 Blood alcohol level of 240 mg/100 ml or more
CPT/HCPCS: 36415; 51702; 71045; 80053; 80307; 81001; 82140; 83605; 83690; 83880; 84484; 85025; 85610; 85730; 87040; 93005; 99285; G0480

== ENCOUNTER 2018-07-16 21:28 | Emergency (ER) | payer MEDICARE, MEDICAID ==
[~2018-07-16] VITALS: Ht 170.2 cm; Wt 100.0 kg
[~2018-07-16 21:28] MED LIST changes: -AMLO-511 PO; -BENZ-51 PO; -BISA5TAB82 PO; -BUME1TAB17 PO; -ESCI10TA PO; -FERR325T22 PO; -GABA-529 PO; -HYDR-309 PO; -HYDR25TA PO; -LIDO700A15 TD; -LISI-662 PO; -OXYC5 PO; -SENN8.6T90 PO; -TAMS0.4C32 PO
[2018-07-16 22:04] LABS: BASOPHILS % (AUTO) 0.5 % (0.0-2.0); EOSINOPHILS % (AUTO) 2.3 % (1.0-6.0); HEMATOCRIT 39.1 % (41-53); HEMOGLOBIN 13.4 g/dL (13.5-17.5); LYMPHOCYTES # (AUTO) 0.8 K/uL (1.0-4.8); LYMPHOCYTES % (AUTO) 23.8 % (22.0-44.0); MEAN CORPUSCULAR HEMOGLOBIN 31.7 pg (26.0-34.0); MEAN CORPUSCULAR HGB CONC 34.2 G/dL (31.0-37.0); MEAN CORPUSCULAR VOLUME 93 fL (80-100); MONOCYTES # (AUTO) 0.4 K/uL (0.1-1.0); MONOCYTES % (AUTO) 11.5 % (2.0-9.0); NEUTROPHILS % (AUTO) 61.9 % (40.0-70.0); RED BLOOD CELL COUNT(AUTO) 4.22 MIL/uL (4.50-5.90)
[2018-07-16 22:16] LABS: ANION GAP 9 mmol/L (8-16); CALCIUM, TOTAL 9.2 mg/dL (8.8-10.5); CARBON DIOXIDE 30 mmol/L (22-29); CHLORIDE 104 mmol/L (98-107); CREATININE 0.67 mg/dL (0.60-1.30); GLOMERULAR FILTR. RATE CALC > 60 mL/min (>60); GLUCOSE,RANDOM 110 mg/dL (70-110); POTASSIUM 3.9 mmol/L (3.5-5.1); SODIUM SERUM 143 mmol/L (136-145); UREA NITROGEN, BLOOD 5 mg/dL (7-18)
[2018-07-16 22:22] LABS: ALANINE AMINOTRANSFERASE 44 U/L (12-78); ALBUMIN 3.4 g/dL (3.4-5.0); ALKALINE PHOSPHATASE 137 U/L (46-116); ASPARTATE AMINOTRANSFERASE 47 U/L (15-37); BILIRUBIN,TOTAL 1.1 mg/dL (0.1-1.0); LIPASE 255 U/L (73-393); TOTAL PROTEIN, SERUM 7.1 g/dL (6.4-8.2)
[2018-07-16 22:28] LABS: PLATELET COUNT (AUTO) 78 K/uL (150-450); PLATELET MORPHOLOGY COMMENT LARGE PLTS PRESENT
[2018-07-17] MEDS ORDERED: IBUPROFEN 600 MG TABLET PO ONE
[2018-07-17 00:41] VITALS: BP 120/64
== END 2018-07-17 02:06 | disposition home or self-care (01) ==
LOC: EMS 21:29
DX: K42.9 Umbilical hernia without obstruction or gangrene (principal); F10.10 Alcohol abuse, uncomplicated; E11.9 Type 2 diabetes mellitus without complications; I11.9 Hypertensive heart disease without heart failure; Z86.73 Personal history of transient ischemic attack (TIA), and cerebral infarction without residual deficits; Z79.82 Long term (current) use of aspirin; Z79.899 Other long term (current) drug therapy; Y90.8 Blood alcohol level of 240 mg/100 ml or more
CPT/HCPCS: 36415; 80053; 83690; 85025; 99284; G0480

== ENCOUNTER 2018-07-17 04:03 | Emergency (ER) | payer MEDICARE, MEDICAID ==
[~2018-07-17] VITALS: Ht 170.2 cm; Wt 99.0 kg
[2018-07-17 04:24] LABS: GLUCOSE,POINT OF CARE 105 MG/DL (70-110)
[2018-07-17] MEDS ORDERED: KETOROLAC TROMETHAMINE 60 MG/2 ML VIAL IM ONE (06:15)
[2018-07-17] MEDS ORDERED: KETOROLAC TROMETHAMINE 30 MG/ML VIAL IM ONE (06:15)
[2018-07-17 06:45] VITALS: BP 129/82
== END 2018-07-17 07:21 | disposition home or self-care (01) ==
LOC: EMS 04:05
DX: K42.9 Umbilical hernia without obstruction or gangrene (principal); R10.13 Epigastric pain; R07.9 Chest pain, unspecified; I11.9 Hypertensive heart disease without heart failure; E11.9 Type 2 diabetes mellitus without complications; Z86.73 Personal history of transient ischemic attack (TIA), and cerebral infarction without residual deficits; Z79.82 Long term (current) use of aspirin; Z79.899 Other long term (current) drug therapy
CPT/HCPCS: 36415; 71045; 82962; 84484; 93005; 96372; 99285; J1885